=== PATIENT | male | born 1975 | race African-American/Black ===

== ENCOUNTER → 2019-05-22 | Outpatient (CLI) | payer OTHER ==
--- NOTE | 2019-05-22 11:56 | Diagnostic Imaging Report ---
Scrotal ultrasound and Doppler Clinical History: Epididymoorchitis and hydrocele Discussion: Sonographic evaluation of the scrotal contents is performed including color Doppler and spectral waveform analysis. The testes have homogeneous echotexture, without focal mass. The right testis measures 4.9 x 3.6 x 4.0 cm. The left testis measures 4.6 x 2.8 x 4.0 cm. On color Doppler evaluation, there is symmetric blood flow to both testes with normal arterial and venous Doppler waveforms. The epididymal heads have normal size and appearance. The right epididymal head measures 0.9 x 0.9 x 0.9 cm. The left epididymal head measures 1.0 x 1.0 x 0.9 cm. There is large right hydrocele and minimal left hydrocele. Impression: 1. Large right hydrocele. 2. Bilateral testis and epididymis demonstrate symmetrical Doppler flow without evidence of epididymoorchitis. Signed by: Dr. Chema Stuart MD on 05/22/2019 11:53 AM
== END ==
LOC: US 10:40
PROVIDERS: ATTEND Urology
DX: N45.3 Epididymo-orchitis (principal); N43.3 Hydrocele, unspecified
CPT/HCPCS: 76870; 93976

== ENCOUNTER → 2019-11-28 | Day surgery (SDC) | payer OTHER ==
[2019-11-23 13:56] LABS: ANION GAP 15.7 mmol/L (8-16); BLOOD UREA NITROGEN 11 mg/dL (7-26); BUN/CREATININE RATIO 9 (6-25); CALCIUM 9.3 mg/dL (8.4-10.2); CARBON DIOXIDE 24 mmol/L (22-29); CHLORIDE 103 mmol/L (98-107); CREATININE, SERUM 1.22 mg/dL (0.72-1.25); EST GLOMERULAR FILTRATION RATE > 60 ML/MIN (60-); GLUCOSE 153 mg/dL (74-118); POTASSIUM 3.7 mmol/L (3.5-5.1); SODIUM 139 mmol/L (136-145)
[~2019-11-28] MED LIST: ACETAMINOPHEN/CODEINE 300MG - 30MG TAB ONE; BUPIVACAINE HCL 0.5% INJ 30 ML VIAL INJ ONE; CEFAZOLIN SOD 1 GM VIAL ONE; CEFAZOLIN SOD 1 GM/NS 50ML 50 ML IV ONE; DESFLURANE 240 ML BTL INH ONE; DEXAMETHASONE SOD PHOS INJ 4 MG/ML VIAL ONE; FENTANYL CITRATE/PF 100MCG/2 ML INJ ONE; GLYCOPYRROLATE INJ 0.2 MG/ML VIAL ONE; KETOROLAC TROMETHAMINE 30 MG/ML VIAL ONE; LIDOCAINE HCL 2% LOCAL INJ 5 ML SDV VIAL INJ ONE; LISINOPRIL-HCT1 EAC1 PO; METFORMIN HCL500 MG PO; MIDAZOLAM HCL 2 MG/2 ML VIAL ONE; NEOSTIGMINE 1 MG/ML 10ML VIAL ONE; ONDANSETRON HCL INJ 2MG/ML 2ML 2 MG/ML VIAL ONE; PROPOFOL IV EMULSION 10 MG/ML 20 ML VIAL ONE; ROCURONIUM BROMIDE 10 MG/ML 5ML VIAL IV ONE; SUCCINYLCHOLINE CHLORIDE 20 MG/ML 10ML VIAL ONE
[2019-11-28 11:20] VITALS: BP 113/68
== END | disposition home or self-care (01) ==
LOC: OR 05:32
PROVIDERS: ATTEND Urology
DX: N43.3 Hydrocele, unspecified (principal); L98.491 Non-pressure chronic ulcer of skin of other sites limited to breakdown of skin; G47.33 Obstructive sleep apnea (adult) (pediatric); I10 Essential (primary) hypertension; E11.9 Type 2 diabetes mellitus without complications; E66.9 Obesity, unspecified; F17.200 Nicotine dependence, unspecified, uncomplicated; Z01.810 Encounter for preprocedural cardiovascular examination; Z01.812 Encounter for preprocedural laboratory examination; Z11.59 Encounter for screening for other viral diseases; Z79.84 Long term (current) use of oral hypoglycemic drugs; Z68.44 Body mass index [BMI] 60.0-69.9, adult
CPT/HCPCS: 14040; 36415; 55040; 80048; 88304; 88305; 88312; 93005; J0330; J0690 ×2; J1100; J1885; J2001; J2250; J2405; J2704; J2710; J3010; U0002